=== PATIENT | male | born 1935 | race Caucasian/White ===

== ENCOUNTER → 2017-07-23 | Day surgery (SDC) | payer MEDICARE, OTHER ==
[~2017-07-23] MED LIST: AMARYL2 MG PO; ASPIRIN325 PO; CHLORDIAZEPOXIDE5 M2 PO; DIGOXIN125 MCG PO; NEURONTIN 300300 M1 PO; NORCO 10-325 T1 EACH PO; OMEPRAZOLE40 MG PO; PIOGLITAZONE15 MG; SYNTHROID88 MCG PO; TOPROL XL25 MG PO; XARELTO20 MG PO; ZANTAC 150MG T150 MG PO
[2017-07-23 12:40] LABS: MCHC 32.4 g/dL (28.0-37.0); MCV 92.6 fL (80.0-100.0); MPV 7.9 fl. (7.2-11.1); RBC 3.67 mil/uL (4.50-6.00); RDW-CV 17.8 % (10.5-14.5); WBC 7.8 thou/uL (4.0-11.0)
[2017-07-23 12:55] LABS: CALCIUM 8.9 mg/dL (8.5-10.1); CREATININE 0.9 mg/dL (0.6-1.3); POTASSIUM 4.1 mmol/L (3.5-5.1)
--- NOTE | 2017-07-23 13:36 | EKG ---
[place] [address] ELECTROCARDIOGRAM REPORT Name: JESSICA WOODWARD Room: [facility]#: [id number] Admission: 07/23/17 Attend Phys: Tonia No Discharge: Date of : 35 Report #: [id number] THIS REPORT FOR: //name// [facility] Test Date: 2017-07-23 Test Time: 12:47:42 Pat Name: JESSICA WOODWARD Department: Room: Gender: M [employer]: : 1935 Requested By: John Woodward Order Number: [id number] Reading MD: Skip Andrews Measurements Intervals [place] Rate: 67 P: [place]: QRS: 21 QRSD: 93 T: 45 QT: 390 QTc: 412 Interpretive Statements Atrial fibrillation Borderline low voltage, extremity leads No previous ECG available for comparison Electronically Signed On 07-23-2017 13:36:23 CDT by Skip Andrews [email or web address] <ELECTRONICALLY SIGNED> By: Skip Andrews MD, [facility] 07/23/17 1336 1247 1247 Skip Andrews MD, FACC /EPI
== END | disposition home or self-care (01) ==
LOC: M.SUR 09:48
PROVIDERS: Surgery
DX: I70.213 Atherosclerosis of native arteries of extremities with intermittent claudication, bilateral legs (principal); Z53.8 Procedure and treatment not carried out for other reasons; I10 Essential (primary) hypertension; E11.9 Type 2 diabetes mellitus without complications; E78.00 Pure hypercholesterolemia, unspecified; E07.9 Disorder of thyroid, unspecified; I25.2 Old myocardial infarction; Z79.82 Long term (current) use of aspirin; Z87.891 Personal history of nicotine dependence; I25.10 Atherosclerotic heart disease of native coronary artery without angina pectoris; Z98.890 Other specified postprocedural states